=== PATIENT | female | born 2005 | race Caucasian/White ===

== ENCOUNTER 2024-06-17 22:49 | Emergency (ER) | payer OTHER, SELFPAY ==
[2024-06-17 22:52] VITALS: BP 146/95; PULSE 104; RESP 18; TEMP 36.6; O2SAT 100
[2024-06-18 01:34] VITALS: BP 136/88; PULSE 117; RESP 17; TEMP 37.2; O2SAT 100
[2024-06-18 01:44] LABS: BEDSIDEPREGUCG Negative (Negative)
[2024-06-18 01:52] LABS: Basophils Percent Auto 0.1 % (0.2-1.2); Eosinophils Absolute Auto 0.1 K/mm3 (0-0.3); Eosinophils Percent Auto 0.8 % (0-4.4); Hematocrit 42.8 % (37.0-47.0); Immature Granulocyte Absolute 0.07 K/mm3 (0.00-0.031); Immature Granulocyte Percent A 0.5 % (0-0.5); Lymphocytes Absolute Auto 2.05 K/mm3 (0.9-3.2); Lymphocytes Percent Auto 14.5 % (18.3-44.2); Mean Corpuscular Hemoglobin 29.8 pg (26-34); Mean Corpuscular Volume 84.9 fl (80-100); Mean Platelet Volume 10.9 fl (7.4-10.4); Monocytes Percent Auto 6.9 % (2.6-8.5); Neutrophils Absolute Auto 10.9 K/mm3 (1.3-6.7); Neutrophils Percent Auto 77.2 % (45.5-73.1); Platelet Count Result 199 k/mm3 (150-375); Red Blood Count 5.04 M/mm3 (4.2-5.4); White Blood Count 14.1 K/mm3 (4.5-10.0)
[2024-06-18 02:08] LABS: Alanine Aminotransferase 18 U/L (6-35); Albumin Level 4.8 g/dL (3.7-5.6); Alkaline Phosphatase 71 U/L (45-116); Anion Gap 12 mmol/L (4-12); Aspartate Amino Transferase 24 U/L (14-36); Bilirubin,Total 0.5 mg/dL (0.2-1.3); Blood Urea Nitrogen 16 mg/dL (8-21); Calcium 9.6 mg/dL (8.9-10.7); Carbon Dioxide 24 mmol/L (22-30); Chloride 101 mmol/L (98-107); Estimated CRCL calculation 86 ml/min; Estimated Glomerular Filt Rate > 60; Glucose 105 mg/dL (65-110); Lipase 90 U/L (23-300); Potassium 3.7 mmol/L (3.4-5.0); Sodium 137 mmol/L (134-143)
[2024-06-18] MEDS: diphenhydrAMINE HCl INJ 50 MG/ML VIAL 25 MG IV PUSH (02:09)
[2024-06-18 02:10] LABS: Add Urine Microscopic? YES; Appearance Urine Clear (Clear); Bacteria Urine None Seen /hpf; Bilirubin Urine Negative (Negative); Blood Urine Negative (Negative); Color Urine Dark Yellow (Yellow); Glucose Urine UA Negative (Negative); Ketones Urine Negative (Negative); Leukocyte Esterase Ur Trace LEU/UL (Negative); Need Manual Microscopic Reviewed; Nitrate Urine Positive (Negative); Non Pathogenic Casts 0-2; Protein Urine Negative (Negative); RBC Urine 0-2 /hpf (0-2); Specific Grav Ur 1.019 (1.001-1.035); Squamous Epithelial Cell Urine Occasional /hpf (Few); WBC Urine 0-5 /hpf (0-3); pH Urine 5.5 (5.0-9.0)
[2024-06-18 03:31] VITALS: BP 107/61; PULSE 82; RESP 14; O2SAT 97
--- NOTE | 2024-06-18 03:43 | ED.GENADULT ---
HPI - General Adult General Chief complaint: Abdominal Pain Stated complaint: Cough, stretching feeling after abx Time Seen by Provider: 06/18/24 01:42 History of Present Illness HPI narrative: Patient is a 18-year-old female who presents emergency department with chief complaint of possible reaction to her medication the patient was seen in urgent care diagnosed with urinary tract infection and started on Macrobid patient states that she took the 1st dose started to cough and felt strange took the 2nd dose evening and started feeling strange the patient denies urticaria denies angioedema denies difficulty swallowing. Related Data Allergies Allergy/AdvReac Type Severity Reaction Status Date / Time No Known Allergies Allergy Verified 06/18/24 01:42 Review of Systems Review of Systems: A 10 system review of systems was completed on the patient and is negative except for what is stated in the HPI. Nursing and ancillary documentation was reviewed. Exam Narrative: GENERAL: Well-appearing, well-nourished, and in no acute distress. HEAD: Normocephalic, atraumatic. EYES: PERRLA and EOMI. ENT: Nares clear, no rhinorrhea or epistaxis. Mucous membranes moist. NECK: Supple. CHEST: Clear to auscultation. No respiratory distress. HEART: Regular rate and rhythm. No murmur heard. Normal peripheral pulses. ABDOMEN: Soft, nontender, nondistended, normal active bowel sounds. EXTREMITIES: Normal range of motion. No edema. SKIN: Warm, dry, no rash. NEURO: No focal deficits. Alert and oriented x3. PSYCH: Normal mood and affect. Course Vital Signs Vital signs: Vital Signs Temperature 36.6 C 06/17/24 22:52 Pulse Rate 104 H 06/17/24 22:52 Respiratory Rate 18 06/17/24 22:52 Blood Pressure 146/95 H 06/17/24 22:52 Pulse Oximetry 100 06/17/24 22:52 Oxygen Delivery Room Air 06/17/24 22:52 Temperature 37.2 C 06/18/24 01:34 Pulse Rate 82 06/18/24 03:31 Respiratory Rate 14 06/18/24 03:31 Blood Pressure 107/61 06/18/24 03:31 Pulse Oximetry 97 06/18/24 03:31 Oxygen Delivery Room Air 06/17/24 22:52 Medical Decision Making MDM Narrative Medical decision making narrative: Differential diagnosis includes medication side effect, UTI, pyelonephritis, Laboratory studies showed a white count of 14.1 electrolytes are within normal limits urinalysis showed positive nitrite positive leukocyte esterase Vital Signs Vital Signs: Vital Signs Temperature 36.6 C 06/17/24 22:52 Pulse Rate 104 H 06/17/24 22:52 Respiratory Rate 18 06/17/24 22:52 Blood Pressure 146/95 H 06/17/24 22:52 Pulse Oximetry 100 06/17/24 22:52 Oxygen Delivery Room Air 06/17/24 22:52 Temperature 37.2 C 06/18/24 01:34 Pulse Rate 82 06/18/24 03:31 Respiratory Rate 14 06/18/24 03:31 Blood Pressure 107/61 06/18/24 03:31 Pulse Oximetry 97 06/18/24 03:31 Oxygen Delivery Room Air 06/17/24 22:52 Lab Data 06/18/24 01:46 06/18/24 01:46 Labs: Lab Results 06/18/24 06/18/24 Range/Units 01:41 01:46 WBC 14.1 H (4.5-10.0) K/mm3 RBC 5.04 (4.2-5.4) M/mm3 Hgb 15.0 (12.0-15.0) g/dL Hct 42.8 (37.0-47.0) % MCV 84.9 (80-100) fl MCH 29.8 (26-34) pg MCHC 35.0 (32-36) g/dl RDW 12.0 (11.5-14.5) % Plt Count 199 (150-375) k/mm3 MPV 10.9 H (7.4-10.4) fl Immature Gran % (Auto) 0.5 (0-0.5) % Neut % (Auto) 77.2 H (45.5-73.1) % Lymph % (Auto) 14.5 L (18.3-44.2) % [place] % (Auto) 6.9 (2.6-8.5) % Eos % (Auto) 0.8 (0-4.4) % Baso % (Auto) 0.1 L (0.2-1.2) % Lymph # (Auto) 2.05 (0.9-3.2) K/mm3 [place] # (Auto) 1.0 H (0.1-0.6) K/mm3 Eos # (Auto) 0.1 (0-0.3) K/mm3 Baso # (Auto) 0.0 (0.0-0.1) K/mm3 Abs Immat Gran (auto) 0.07 H (0.00-0.031) K/mm3 Absolute Neuts (auto) 10.9 H (1.3-6.7) K/mm3 Absolute Nucleated RBC 0.000 (0.0-0.012) K/mm3 Nucleated RBC % 0.0 (0.0-0.2) % Sodium 137 (
== END 2024-06-18 04:15 | disposition home or self-care (01) ==
PROVIDERS: Emergency Provider Emergency Medicine
DX: R44.8 Other symptoms and signs involving general sensations and perceptions (principal); T37.8X5A Adverse effect of other specified systemic anti-infectives and antiparasitics, initial encounter; N39.0 Urinary tract infection, site not specified
CPT/HCPCS: 36415; 80053; 81001; 81025; 83690; 85025; 87086; 96374; 99284; J1200